=== PATIENT | female | born 1965 | race Caucasian/White ===

== ENCOUNTER 2016-06-21 08:17 | Emergency (ER) | payer MEDICAID ==
[2016-06-21] MEDS ORDERED: LORAZEPAM 2 MG/ML VIAL ONE (09:16)
[2016-06-21] MEDS ORDERED: KETOROLAC 30 MG/ML VIAL ONE (09:17)
== END 2016-06-21 11:24 | disposition home or self-care (01) ==
LOC: ER 08:17
DX: M79.1 Myalgia (principal); Z79.899 Other long term (current) drug therapy; F17.210 Nicotine dependence, cigarettes, uncomplicated
CPT/HCPCS: 72100; 96374; 96375